=== PATIENT | female | born 1995 | race Caucasian/White ===

== ENCOUNTER 2019-09-25 18:20 | Emergency (ER) | payer BC, SELFPAY ==
--- NOTE | ~2019-09-25 | XR_ITS ---
EXAMINATION: XR hand RT min 3V EXAM DATE: 09/25/2019 19:49 INDICATION: Initial encounter following injury, with pain of the right hand. Dog bite. TECHNIQUE: Right hand frontal, lateral and oblique projections obtained and reviewed. There is no pr ior study for comparison. FINDINGS: Right metacarpal bones are unremarkable. There are no acute fractures or dislocations iden tified. There is no subcutaneous gas. The soft tissue is unremarkable. IMPRESSION: 1. XR hand RT min 3V exam without acute osseous findings. Reviewed, dictated and finalized at location A.
--- NOTE | ~2019-09-25 | XR_ITS ---
EXAMINATION: XR hand LT min 3V EXAM DATE: 09/25/2019 19:49 INDICATION: Initial encounter following injury, with pain of the left hand. Dog bite. TECHNIQUE: Left hand frontal, lateral and oblique projections obtained and reviewed. There is no dwayne or study for comparison. FINDINGS: Left metacarpal bones are unremarkable. There are no acute fractures or dislocations ident ified. There is no subcutaneous gas. The soft tissue is unremarkable. There are no radiopaque for eign bodies. IMPRESSION: No acute osseous findings. Reviewed, dictated and finalized at location A. IMPRESSION: No acute osseous findings.
[2019-09-25 18:24] VITALS: BP 142/91; PULSE 76; RESP 18; TEMP 37.1; O2SAT 100
--- NOTE | 2019-09-25 19:34 | ED.ANIMALBIT ---
HPI - Animal Bite General Chief Complaint: Animal Bite <PANCHITO Courtney Last Filed: 09/25/19 20:02> Stated Complaint: DOG BITE BILATERAL HANDS <PANCHITO Courtney Last Filed: 09/25/19 20:02> Time Seen by Provider: 09/25/19 18:51 <PANCHITO Courtney Last Filed: 09/25/19 20:02> Source: patient <PANCHITO Courtney Last Filed: 09/25/19 20:02> Mode of arrival: ambulatory <PANCHITO Courtney Last Filed: 09/25/19 20:02> Limitations: no limitations <PANCHITO Courtney Last Filed: 09/25/19 20:02> History of Present Illness HPI narrative: This is a 24 year old female that presents to the ER for dog bite just prior to arrival. Reports she was out walking her dog and another dog attacked hers. Reports the other dog is up to date on vaccinations. Reports she is up to date on tetanus. Denies decreased ROM or numbness. <PANCHITO Courtney Last Filed: 09/25/19 20:02> Related Data Home Medications: Home Medications Medication Instructions Recorded Confirmed norgestimate-ethinyl estradiol tablet 09/25/19 [Tri-Sprintec (28)] <PANCHITO Courtney Last Filed: 09/25/19 20:02> Allergies/Adverse Reactions: Allergies Allergy/AdvReac Type Severity Reaction Status Date / Time No Known Allergies Allergy Unverified 09/25/19 18:33 <PANCHITO Courtney Last Filed: 09/25/19 20:02> Review of Systems Review of Systems: Narrative: CONSTITUTIONAL: Denies fever SKIN: Report laceration MUSCULOSKELETAL: Denies joint pain, or myalgia. NEUROLOGIC: Denies numbness <PANCHITO Courtney Last Filed: 09/25/19 20:02> All systems reviewed & are unremarkable except as noted in HPI and below <PANCHITO Courtney Last Filed: 09/25/19 20:02> PMFSH Past Medical History Medical History: Medical History (Updated 09/25/19 @ 20:00 by Rolanda Frazier PA-C) No active medical problems <Rolanda Frazier PA-C - Last Filed: 09/25/19 20:02> Family History Family History: Family History (Updated 05/30/16 @ 13:03 by DOCTOR UNKNOWN) Mother Family history of diabetes mellitus in first degree relative Family history of type 1 diabetes mellitus Grandparent Family history of cardiovascular disease Carcinoma of colon Family history of malignant neoplasm of brain <Rolanda Frazier PA-C - Last Filed: 09/25/19 20:02> Social History Social History: Social History Smoking status: Never smoker Alcohol intake: current Gender identity (if verbalized by the patient): Female <Rolanda Frazier PA-C - Last Filed: 09/25/19 20:02> Exam Narrative: Exam Narrative: GENERAL: Well-appearing, well-nourished, and in no acute distress. HEAD: Normocephalic, atraumatic. EYES: EOMI. EXTREMITIES: Normal range of motion. No edema or obvious deformity. Superficial abrasions at the base of bilateral 5th fingers SKIN: Warm, dry, no rash. NEURO: No focal deficits. Alert and oriented x3. PSYCH: Normal mood and affect <Rolanda Frazier PA-C - Last Filed: 09/25/19 20:02> Course Vital Signs Vital signs: Vital Signs Temperature 37.1 C 09/25/19 18:24 Pulse Rate 76 09/25/19 18:24 Respiratory Rate 18 09/25/19 18:24 Blood Pressure 142/91 H 09/25/19 18:24 Pulse Oximetry 100 09/25/19 18:24 Temperature 37.1 C 09/25/19 18:24 Pulse Rate 76 09/25/19 18:24 Respiratory Rate 18 09/25/19 18:24 Blood Pressure 142/91 H 09/25/19 18:24 Pulse Oximetry 100 09/25/19 18:24 <Rolanda Frazier PA-C - Last Filed: 09/25/19 20:02> Vital Signs Temperature 37.1 C 09/25/19 18:24 Pulse Rate 76 09/25/19 18:24 Respiratory Rate 18 09/25/19 18:24 Blood Pressure 142/91 H 09/25/19 18:24 Pulse Oximetry 100 09/25/19 18:24 Temperature 37.1 C 09/25/19 18:24 Pulse Rate 76 09/25/19 18:24 Respiratory Rate 18 09/25/19 18:24 Blood Pressure 142/91 H 09/25/19 18:24 Pulse Oximetry 100 09/25/19 18:
== END 2019-09-25 20:30 | disposition home or self-care (01) ==
PROVIDERS: Emergency Provider Emergency Medicine; PCP Family Medicine
DX: S61.452A Open bite of left hand, initial encounter (principal); S61.451A Open bite of right hand, initial encounter; W54.0XXA Bitten by dog, initial encounter
CPT/HCPCS: 73130; 99284

== ENCOUNTER 2020-08-29 08:29 | Emergency (ER) | payer OTHER, SELFPAY ==
[2020-08-29 08:31] VITALS: BP 125/84; PULSE 77; RESP 20; TEMP 36.8; O2SAT 100
--- NOTE | 2020-08-29 09:39 | ED.WOUNDLAC ---
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 right forearm Cat has apparently not one of their frequent customers but is known and can be observed either in their office or at the director payer's office, is not known whether all vaccinations are current but they have at least been given previously Right now she has no swelling no redness no problems moving her arm or wrist and no bleeding from the wounds Related Data Home Medications Medication Instructions Recorded Confirmed norgestimate-ethinyl estradiol 1 tablet PO DAILY 09/25/19 08/29/20 [Tri-Sprintec (28)] Allergies Allergy/AdvReac Type Severity Reaction Status Date / Time No Known Allergies Allergy Verified 08/29/20 08:32 Review of Systems Review of Systems: All systems reviewed & are unremarkable except as noted in HPI and below Constitutional: Constitutional: Reports no additional constitutional complaints, Denies chills, Denies fever(s) and Denies headache(s) ENT: Denies headache(s) Cardiovascular: Cardiovascular: Denies dyspnea Genitourinary: Genitourinary: Denies urinary frequency Musculoskeletal: Musculoskeletal: Denies deformity, Denies arthralgias, Denies joint swelling and Denies numbness Integumentary/Breasts: Skin/Breast: Denies erythema, Denies rash and Denies wounds Neurologic: Denies focal weakness and Denies numbness Psychiatric: Psychiatric: Reports no additional psychiatric complaints [facility] Past Medical History Medical History (Updated 08/29/20 @ 09:49 by Naeem Patterson MD) No active medical problems Family History Family History (Updated 05/30/16 @ 13:03 by DOCTOR UNKNOWN) Mother Family history of diabetes mellitus in first degree relative Family history of type 1 diabetes mellitus Grandparent Family history of cardiovascular disease Carcinoma of colon Family history of malignant neoplasm of brain Social History Social History Smoking status: Never smoker Alcohol intake: current Gender identity (if verbalized by the patient): Female Exam Const: General: cooperative, no acute distress and alert Orientation/consciousness: patient oriented x3 (alert) HENMT: Head: normal to inspection, normocephalic and atraumatic Eyes: Conjunctivae: conjunctivae normal EOM: EOMs intact bilaterally Neck: Neck: supple and no JVD Resp: Effort & Inspection: normal respiratory effort and not labored Auscultation: other (BS =) Skin: General skin exam: normal color and no rashes or lesions noted Neuro: General: patient oriented x3 (alert) and moves all extremities Speech: normal speech Extrem: Other: There are 4 separate small punctures to the mid forearm, medially seems very superficial, laterally 1 seems likely to have entered subcu Distal neurovascular is all normal Psych: Affect: normal affect Course Vital Signs Vital signs: Vital Signs Temperature 36.8 C 08/29/20 08:31 Pulse Rate 77 08/29/20 08:31 Respiratory Rate 20 08/29/20 08:31 Blood Pressure 125/84 08/29/20 08:31 Pulse Oximetry 100 08/29/20 08:31 Temperature 36.8 C 08/29/20 08:31 Pulse Rate 77 08/29/20 08:31 Respiratory Rate 20 08/29/20 08:31 Blood Pressure 125/84 08/29/20 08:31 Pulse Oximetry 100 08/29/20 08:31 Discharge Plan Discharge Clinical Impression: Cat bite involving extremity Patient Disposition: Home, Self-Care Condition: Stable Instructions: Antibiotic Form, Animal Bite (ED) Prescriptions: New amoxicillin-pot clavulanate [Augmentin] 250-62.5 mg/5 mL suspension for reconstitution 15 ml PO
[2020-08-29] MEDS: TETANUS,DIPHTHERIA,AC PERTUSSIS ADULT (0.5 ML) BOOSTRIX IM (09:49)
[2020-08-29 09:58] VITALS: BP 132/68; PULSE 80; RESP 18; O2SAT 99
== END 2020-08-29 10:00 | disposition home or self-care (01) ==
PROVIDERS: Emergency Provider Emergency Medicine; PCP Family Medicine
DX: S51.851A Open bite of right forearm, initial encounter (principal); W55.01XA Bitten by cat, initial encounter; Z23 Encounter for immunization
CPT/HCPCS: 90471; 90715; 99283

== ENCOUNTER 2021-01-07 08:57 | Outpatient (CLI) | payer OTHER, SELFPAY ==
[2021-01-07 18:30] LABS: Hematocrit 41.2 % (37.0-47.0); Mean Corpuscular HGB Conc 31.6 g/dl (32-36); Mean Corpuscular Hemoglobin 28.3 pg (26-34); Mean Corpuscular Volume 89.8 fl (80-100); Platelet Count Result 306 k/mm3 (150-375); Red Blood Count 4.59 M/mm3 (4.2-5.4); Red Cell Distribution Width 12.6 % (11.5-14.5); White Blood Count 7.4 K/mm3 (4.5-10.0)
[2021-01-07 19:49] LABS: Alanine Aminotransferase 315 U/L (4-35); Albumin Level 3.8 g/dL (3.5-5.1); Alkaline Phosphatase 263 U/L (38-126); Anion Gap 8 mmol/L (8-16); Aspartate Amino Transferase 151 U/L (14-36); Bilirubin,Total 0.8 mg/dL (0.2-1.3); Blood Urea Nitrogen 8 mg/dL (7-17); Calcium 9.4 mg/dL (8.4-10.2); Carbon Dioxide 27 mmol/L (22-30); Chloride 102 mmol/L (98-107); Cholesterol 198 mg/dL (0-200); Estimated Glomerular Filt Rate > 60; Glucose 104 mg/dL (65-110); HDL Direct 48 mg/dL; Potassium 4.1 mmol/L (3.4-5.0); Sodium 137 mmol/L (137-145); Triglycerides 124 mg/dL (<150)
[2021-01-07 20:00] LABS: LDL Cholesterol Direct 107 mg/dL
== END 2021-01-07 08:58 | disposition home or self-care (01) ==
LOC: ANHBWCLAB 08:58
PROVIDERS: PCP Family Medicine; Visit Provider Family Medicine
DX: J02.9 Acute pharyngitis, unspecified (principal); J30.9 Allergic rhinitis, unspecified
CPT/HCPCS: 36415; 80053; 80061; 85027

== ENCOUNTER 2021-01-13 07:49 | Outpatient (CLI) | payer OTHER, SELFPAY ==
[2021-01-13 18:52] LABS: Monoscreen Positive (Negative); Negative Monotest Control Negative (Negative); Positive Monotest Control Positive (Positive)
[2021-01-13 19:13] LABS: Alanine Aminotransferase 116 U/L (4-35); Albumin Level 3.8 g/dL (3.5-5.1); Alkaline Phosphatase 181 U/L (38-126); Aspartate Amino Transferase 54 U/L (14-36); Bilirubin,Total 0.7 mg/dL (0.2-1.3)
[2021-01-13 21:25] LABS: Hepatitis B Surface Antigen Negative (Negative)
[2021-01-13 21:31] LABS: HAV RESULT Negative (Negative); Hepatitis B Core IgM Result Negative (Negative)
[2021-01-13 21:43] LABS: Hepatitis C Virus Antibody Negative (Negative)
[2021-01-16 14:48] LABS: EBV Nuclear Ab Antibody <18.00 U/mL (<18.00); EBV Nuclear Ab Interpretation Current (Acute); EBV Virus Capsid Ag IgM Ab >160.00 U/mL (<36.00)
[2021-01-16 20:39] LABS: GGT 55 U/L (3-40)
== END 2021-01-13 07:50 | disposition home or self-care (01) ==
PROVIDERS: PCP Family Medicine; Visit Provider Family Medicine
DX: R74.8 Abnormal levels of other serum enzymes (principal); J02.9 Acute pharyngitis, unspecified
CPT/HCPCS: 36415; 80074; 80076; 82977; 86308; 86664; 86665

== ENCOUNTER 2021-01-18 13:48 | Outpatient (CLI) | payer OTHER, SELFPAY ==
[2021-01-18 18:32] LABS: Basophils Percent Auto 0.6 % (0.2-1.2); Eosinophils Absolute Auto 0.1 K/mm3 (0-0.3); Eosinophils Percent Auto 1.6 % (0-4.4); Hematocrit 38.9 % (37.0-47.0); Hemoglobin 12.4 g/dL (12.0-15.0); Immature Granulocyte Absolute 0.02 K/mm3 (0.00-0.031); Immature Granulocyte Percent A 0.3 % (0-0.5); Lymphocytes Absolute Auto 2.68 K/mm3 (0.9-3.2); Lymphocytes Percent Auto 38.8 % (18.3-44.2); Mean Corpuscular HGB Conc 31.9 g/dl (32-36); Mean Corpuscular Hemoglobin 28.2 pg (26-34); Mean Corpuscular Volume 88.6 fl (80-100); Mean Platelet Volume 10.4 fl (7.4-10.4); Monocytes Absolute Auto 0.6 K/mm3 (0.1-0.6); Monocytes Percent Auto 8.5 % (2.6-8.5); Neutrophils Absolute Auto 3.5 K/mm3 (1.3-6.7); Neutrophils Percent Auto 50.2 % (45.5-73.1); Platelet Count Result 324 k/mm3 (150-375); Red Blood Count 4.39 M/mm3 (4.2-5.4); Red Cell Distribution Width 12.4 % (11.5-14.5); White Blood Count 6.9 K/mm3 (4.5-10.0)
== END 2021-01-18 13:49 | disposition home or self-care (01) ==
LOC: ANHBWCLAB 13:50
PROVIDERS: PCP Family Medicine; Visit Provider Family Medicine
DX: R10.12 Left upper quadrant pain (principal); B27.90 Infectious mononucleosis, unspecified without complication
CPT/HCPCS: 36415; 85025

== ENCOUNTER 2021-01-18 16:33 | Emergency (ER) | payer OTHER, SELFPAY ==
--- NOTE | ~2021-01-18 | CT_ITS ---
EXAMINATION: CT abdomen pelvis w con DATE: 01/18/2021 23:01 INDICATION: Left upper quadrant abdominal pain. TECHNIQUE: Computed tomography (CT) of the abdomen and pelvis was performed with 100 mL Omnipaque 350 intravenous contrast. Automated exposure control and iterative reconstruction technique were employe d. The dose-length product was 332.48 mGy-cm. COMPARISON: None. FINDINGS: The visualized portions of the lung bases demonstrate minimal atelectasis. No pleural effus ion. The heart size is normal. No pericardial effusion. The liver, gallbladder, spleen, pancreas, adr enal glands, and kidneys are normal. The appendix is normal. Stool distends the rectum. There are no pathologically enlarged lymph nodes. There is no free intraperitoneal fluid. There is a 3.0 cm cyst i n right ovary, likely a follicular cyst. There is a benign bone island in left femoral head. IMPRESSION: 1. Stool distends the rectum. Reviewed, dictated and finalized at location A.
[2021-01-18 17:39] VITALS: BP 138/79; PULSE 62; RESP 14; TEMP 36.8; O2SAT 100
[2021-01-18 18:06] LABS: Basophils Percent Auto 0.6 % (0.2-1.2); Eosinophils Absolute Auto 0.1 K/mm3 (0-0.3); Eosinophils Percent Auto 1.2 % (0-4.4); Hematocrit 38.5 % (37.0-47.0); Hemoglobin 12.6 g/dL (12.0-15.0); Immature Granulocyte Absolute 0.02 K/mm3 (0.00-0.031); Immature Granulocyte Percent A 0.3 % (0-0.5); Lymphocytes Absolute Auto 2.95 K/mm3 (0.9-3.2); Lymphocytes Percent Auto 44.2 % (18.3-44.2); Mean Corpuscular HGB Conc 32.7 g/dl (32-36); Mean Corpuscular Hemoglobin 28.6 pg (26-34); Mean Corpuscular Volume 87.3 fl (80-100); Mean Platelet Volume 9.9 fl (7.4-10.4); Monocytes Absolute Auto 0.5 K/mm3 (0.1-0.6); Neutrophils Absolute Auto 3.1 K/mm3 (1.3-6.7); Neutrophils Percent Auto 46.7 % (45.5-73.1); Platelet Count Result 301 k/mm3 (150-375); Red Blood Count 4.41 M/mm3 (4.2-5.4); Red Cell Distribution Width 12.3 % (11.5-14.5); White Blood Count 6.7 K/mm3 (4.5-10.0)
[2021-01-18 18:11] LABS: Alanine Aminotransferase 59 U/L (4-35); Alkaline Phosphatase 127 U/L (38-126); Anion Gap 5 mmol/L (8-16); Aspartate Amino Transferase 45 U/L (14-36); Bilirubin,Total 0.6 mg/dL (0.2-1.3); Blood Urea Nitrogen 11 mg/dL (7-17); Calcium 8.9 mg/dL (8.4-10.2); Carbon Dioxide 26 mmol/L (22-30); Chloride 105 mmol/L (98-107); Estimated CRCL calculation 98 ml/min; Estimated Glomerular Filt Rate > 60; Glucose 90 mg/dL (65-110); Lipase 88 U/L (23-300); Potassium 4.3 mmol/L (3.4-5.0); Sodium 136 mmol/L (137-145)
[2021-01-18 20:41] VITALS: BP 143/65; PULSE 63; RESP 20; TEMP 36.3; O2SAT 100
[2021-01-18 22:17] LABS: Add Urine Microscopic? YES; Amorphous Sediment Urine Few; Appearance Urine Cloudy (Clear); Bacteria Urine Trace /hpf; Bilirubin Urine Negative (Negative); Blood Urine Negative (Negative); Color Urine Yellow (Yellow); Glucose Urine UA Negative (Negative); Ketones Urine Negative (Negative); Leukocyte Esterase Ur 1+ LEU/UL (Negative); Mucus Urine Rare /lpf; Nitrate Urine Negative (Negative); Protein Urine Negative (Negative); Squamous Epithelial Cell Urine Many /hpf (Few); Urobilinogen Urine Negative mg/dL (<2.0); WBC Urine 0-3 /hpf
[2021-01-18 22:44] VITALS: BP 131/81; PULSE 72; RESP 14; O2SAT 100
--- NOTE | 2021-01-19 00:22 | ED.ABDPAIN ---
HPI - Abdominal Pain General Chief Complaint: Abdominal Pain Stated Complaint: abd pain Time Seen by Provider: 01/18/21 22:12 History of Present Illness HPI narrative: Patient is a 25-year-old female who presents ER with left upper quadrant abdominal pain. She was referred here by her PCP for CT scan of abdomen pelvis. Patient was diagnosed recently with Jany-Sutton virus. She had been doing well despite having fatigue and sore throat. The pain started over the last couple days. 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 No lightheadedness or dizziness. No recent fevers or chills or sweats. No alleviating factors. Radiates to the left flank. Related Data Home Medications Medication Instructions Recorded Confirmed norgestimate-ethinyl estradiol 1 tablet PO DAILY 09/25/19 01/12/21 [Tri-Sprintec (28)] cetirizine 10 mg tablet 10 mg PO DAILY PRN 01/07/21 01/12/21 Allergies Allergy/AdvReac Type Severity Reaction Status Date / Time No Known Allergies Allergy Verified 01/18/21 13:14 Review of Systems Review of Systems: All systems reviewed & are unremarkable except as noted in HPI and below Constitutional: Constitutional: Denies chills, Reports fatigue and Denies fever(s) ENT: Denies nasal congestion and Denies sore throat Gastrointestinal: Gastrointestinal: Reports abdominal pain, Denies constipation, Denies diarrhea, Denies nausea and Denies vomiting Genitourinary: Genitourinary: Denies hematuria, Denies nocturia, Denies dysuria and Reports flank pain Musculoskeletal: Musculoskeletal: Denies back pain and Denies muscle cramps PMFSH Past Medical History Medical History (Updated 01/19/21 @ 00:26 by Yaniv Merida MD) No active medical problems Surgical History Surgical History (Updated 01/19/21 @ 00:24 by Yaniv Merida MD) No pertinent past surgical history Family History Family History Mother Family history of diabetes mellitus in first degree relative Family history of type 1 diabetes mellitus Grandparent Family history of cardiovascular disease Carcinoma of colon Family history of malignant neoplasm of brain Social History Social History Smoking status: Never smoker Alcohol intake: current Gender identity (if verbalized by the patient): Female Exam Narrative: GENERAL: Well-appearing, well-nourished, and in no acute distress. HEAD: Normocephalic, atraumatic. CHEST: Clear to auscultation. No respiratory distress. HEART: Regular rate and rhythm. Normal peripheral pulses. ABDOMEN: Soft, mild tenderness left upper quadrant without rebound or guarding, no palpable hepatosplenomegaly, nondistended. EXTREMITIES: Normal range of motion. No edema. SKIN: Warm, dry, no rash. NEURO: Alert and oriented x3. PSYCH: Normal mood and affect. Course Course Emergency Course: Informed of results. Discharge home. Vital Signs Vital signs: Vital Signs Temperature 98.3 F 01/18/21 17:39 Pulse Rate 62 01/18/21 17:39 Respiratory Rate 14 01/18/21 17:39 Blood Pressure 138/79 01/18/21 17:39 Pulse Oximetry 100 01/18/21 17:39 Temperature 97.4 F L 01/18/21 20:41 Pulse Rate 72 01/18/21 22:44 Respiratory Rate 14 01/18/21 22:44 Blood Pressure 131/81 01/18/21 22:44 Pulse Oximetry 100 01/18/21 22:44 MDM - Abdominal Pain Lab Data Result diagrams: 01/18/21 17:50 01/18/21 17:50 Labs: Lab Results 01/18/21 01/18/21 01/18/21 Range/Units 17:50 17:50 22:03 WBC 6.7 (4.5-10.0) K/mm3 RBC 4.41 (4.2-5.4) M/mm3 Hgb 12.6 (12.0-15.0) g/dL Hct 38.5 (37.0-47.0) % MCV 87.3 (80-100) fl MCH 28.6 (26-34) pg MCHC 32.7 (32-36) g/dl RDW 12.3 (11.5-14.5) % Plt Count 301 (150-375) k/mm3 MPV 9.9 (7.4-10.4) fl Immature Gran % (Auto) 0.3 (0-0.5) % Neut % (A
[2021-01-19 00:33] VITALS: BP 135/82; PULSE 80; RESP 14; O2SAT 99
== END 2021-01-19 00:33 | disposition home or self-care (01) ==
PROVIDERS: Emergency Medicine; Emergency Provider Emergency Medicine; PCP Family Medicine
DX: K59.00 Constipation, unspecified (principal)
CPT/HCPCS: 36415; 74177; 80053; 81001; 81025; 83690; 85025; 99284; Q9967

== ENCOUNTER 2021-05-11 08:59 | Outpatient (CLI) | payer OTHER, SELFPAY ==
--- NOTE | ~2021-05-11 | XR_ITS ---
EXAMINATION: XR abdomen obstructive series DATE: 05/11/2021 09:20 INDICATION: Abdomen pain. TECHNIQUE: Supine and upright views of the abdomen. FINDINGS: Upright view is limited for evaluation of free air due to exclusion of the diaphragms. There is a nonobstructive bowel gas pattern. Gas and stool are seen throughout the colon to the level of the rectum. Moderate colonic fecal loading. No abnormal calcifications. IMPRESSION: 1. No acute abdominal abnormality. Reviewed, dictated and finalized at location A. TY AUDITOR
[2021-05-11 17:51] LABS: Alanine Aminotransferase 23 U/L (4-35); Alkaline Phosphatase 66 U/L (38-126); Aspartate Amino Transferase 30 U/L (14-36); Bilirubin,Total 0.4 mg/dL (0.2-1.3)
[2021-05-11 18:21] LABS: Hepatitis B Surface Antigen Negative (Negative)
[2021-05-11 18:27] LABS: HAV RESULT Negative (Negative); Hepatitis B Core IgM Result Negative (Negative)
[2021-05-11 18:38] LABS: Hepatitis C Virus Antibody Negative (Negative)
== END 2021-05-11 09:00 | disposition home or self-care (01) ==
LOC: ANHBWCLAB 09:01
PROVIDERS: PCP Family Medicine; Visit Provider Family Medicine
DX: R10.9 Unspecified abdominal pain (principal); R35.0 Frequency of micturition; R51.9 Headache, unspecified; R74.8 Abnormal levels of other serum enzymes; S06.0X9A Concussion with loss of consciousness of unspecified duration, initial encounter
CPT/HCPCS: 36415; 74019; 80074; 80076; 84443

== ENCOUNTER 2022-07-16 22:17 | Emergency (ER) | payer OTHER, SELFPAY ==
--- NOTE | ~2022-07-16 | XR_ITS ---
Portable chest x-ray Comparison: 10/29/2013 Clinical History: Weakness, rapid heart rate Findings: Lungs are clear, without focal consolidation or pleural effusion. Cardiomediastinal silho uette is stable. Bones and soft tissues are unremarkable. Impression: Normal chest. Reviewed, dictated and finalized at location . ER CHAINSTITCH Impression: Normal chest.
[2022-07-16 22:25] VITALS: BP 136/89; PULSE 75; RESP 16; TEMP 36.6; O2SAT 100
--- NOTE | 2022-07-16 22:25 | ECG_ITS ---
Measurements Intervals Reedy Rate: 69 P: 32 DC: 154 QRS: 52 QRSD: 89 T: 19 QT: 366 QTc: 392 Interpretive Statements SINUS RHYTHM POSSIBLE LEFT ATRIAL ENLARGEMENT RSR (QR) IN V1/V2 BORDERLINE ECG NO PREVIOUS ECG AVAILABLE FOR COMPARISON Electronically Signed On 07-17-2022 14:11:18 GETTERER by Jaylon Mo M.D.
[2022-07-16 23:46] VITALS: PULSE 60; O2SAT 100
[2022-07-16 23:47] VITALS: BP 128/74; PULSE 63; RESP 14; O2SAT 100
[2022-07-17] VITALS (10 sets, daily range): BP systolic 106–127; BP diastolic 70–82; PULSE 56–72; RESP 16–24; O2SAT 99–100
[2022-07-17] MEDS: METOCLOPRAMIDE HCL INJ 10 MG/2 ML VIAL IV PUSH (00:02)
[2022-07-17] MEDS: SODIUM CHLORIDE 0.9% IV 1,000 ML 999 ML IV CONT (00:02)
[2022-07-17 00:12] LABS: Lactic Acid Reflex 0.6 mmol/L (0.7-2.0)
[2022-07-17 00:14] LABS: Alanine Aminotransferase 22 U/L (6-35); Albumin Level 4.3 g/dL (3.5-5.1); Alkaline Phosphatase 78 U/L (38-126); Anion Gap 4 mmol/L (8-16); Aspartate Amino Transferase 30 U/L (14-36); Basophils Percent Auto 0.4 % (0.2-1.2); Bilirubin,Total 0.4 mg/dL (0.2-1.3); Blood Urea Nitrogen 11 mg/dL (7-17); Calcium 9.2 mg/dL (8.4-10.2); Carbon Dioxide 27 mmol/L (22-30); Chloride 105 mmol/L (98-107); Eosinophils Absolute Auto 0.1 K/mm3 (0-0.3); Eosinophils Percent Auto 1.6 % (0-4.4); Estimated CRCL calculation 111 ml/min; Estimated Glomerular Filt Rate > 60; Glucose 105 mg/dL (65-110); Hemoglobin 13.2 g/dL (12.0-15.0); Immature Granulocyte Absolute 0.07 K/mm3 (0.00-0.031); Immature Granulocyte Percent A 0.9 % (0-0.5); Lymphocytes Absolute Auto 2.75 K/mm3 (0.9-3.2); Lymphocytes Percent Auto 36.6 % (18.3-44.2); Mean Corpuscular Hemoglobin 29.5 pg (26-34); Mean Corpuscular Volume 89.5 fl (80-100); Mean Platelet Volume 10.6 fl (7.4-10.4); Monocytes Absolute Auto 0.4 K/mm3 (0.1-0.6); Monocytes Percent Auto 5.7 % (2.6-8.5); Neutrophils Absolute Auto 4.1 K/mm3 (1.3-6.7); Neutrophils Percent Auto 54.8 % (45.5-73.1); Platelet Count Result 291 k/mm3 (150-375); Potassium 3.8 mmol/L (3.4-5.0); Red Blood Count 4.47 M/mm3 (4.2-5.4); Red Cell Distribution Width 12.8 % (11.5-14.5); Sodium 136 mmol/L (137-145); White Blood Count 7.5 K/mm3 (4.5-10.0)
--- NOTE | 2022-07-17 00:15 | ED.GENADULT ---
HPI - General Adult General Chief complaint: Weakness Stated complaint: dizziness, lightheadedness, rapid HR Time Seen by Provider: 07/16/22 23:05 History of Present Illness HPI narrative: Is a 27-year-old female who presents the emergency department with chief complaint of lightheadedness and fast heart rate. The patient reports that she was playing volleyball today and started feeling lightheaded seeing spots and reported that her Apple Watch read that her heart rate was between 140 and 160. Patient states she felt as though she was having palpitations with a little bit of tightness in her chest as well. Patient reports the symptoms are worsened whenever she sits up and reports that they are improved with laying down. The patient also reports that she had nausea with this as well. Related Data Home Medications Medication Instructions Recorded Confirmed norgestimate-ethinyl estradiol 1 tablet PO DAILY 09/25/19 05/11/21 0.18 mg/0.215mg/0.25mg-35 mcg(28)tablet (Tri-Sprintec (28)) cetirizine 10 mg tablet (Zyrtec) 10 mg PO DAILY PRN 01/07/21 05/11/21 Allergies Allergy/AdvReac Type Severity Reaction Status Date / Time No Known Allergies Allergy Verified 05/11/21 08:24 Review of Systems Review of Systems: A 10 system review of systems was completed on the patient and is negative except for what is stated in the HPI. Nursing and ancillary documentation was reviewed. PMFSH Past Medical History Medical History No active medical problems Surgical History Surgical History No pertinent past surgical history Family History Family History Mother Family history of diabetes mellitus in first degree relative Family history of type 1 diabetes mellitus Grandparent Family history of cardiovascular disease Carcinoma of colon Family history of malignant neoplasm of brain Social History Social History Smoking status: Never smoker Alcohol intake: current Gender identity (if verbalized by the patient): Female Exam Narrative: GENERAL: Well-appearing, well-nourished, and in no acute distress. HEAD: Normocephalic, atraumatic. EYES: PERRLA and EOMI. ENT: Nares clear, no rhinorrhea or epistaxis. Mucous membranes moist. NECK: Supple. CHEST: Clear to auscultation. No respiratory distress. HEART: Regular rate and rhythm. No murmur heard. Normal peripheral pulses. ABDOMEN: Soft, nontender, nondistended, normal active bowel sounds. EXTREMITIES: Normal range of motion. No edema. SKIN: Warm, dry, no rash. NEURO: No focal deficits. Alert and oriented x3. PSYCH: Normal mood and affect. Course Vital Signs Vital signs: Vital Signs Temperature 36.6 C 07/16/22 22:25 Pulse Rate 75 07/16/22 22:25 Respiratory Rate 16 07/16/22 22:25 Blood Pressure 136/89 07/16/22 22:25 Pulse Oximetry 100 07/16/22 22:25 Oxygen Delivery Room Air 07/16/22 22:25 Temperature 36.6 C 07/16/22 22:25 Pulse Rate 70 07/17/22 01:20 Respiratory Rate 16 07/16/22 22:25 Blood Pressure 123/82 07/17/22 01:20 Pulse Oximetry 100 07/16/22 22:25 Oxygen Delivery Room Air 07/16/22 22:25 Medical Decision Making [facility] Narrative Medical decision making narrative: Differential diagnosis includes dysrhythmia, electrolyte abnormality, dehydration. EKG interpreted by me shows sinus rhythm rate of [address] elevation or ST depression Chest x-ray interpreted by me shows no focal findings Laboratory studies were obtained which showed normal electrolytes normal CBC lactic acid was 0.6 urine was clean COVID and flu were negative. Patient was observed in the emergency department on telemetry received IV fluids and is feeling much better she has negative orthostatics was able
[2022-07-17 00:25] LABS: Troponin I < 0.012 ng/mL (0.000-0.034)
[2022-07-17 00:30] LABS: Appearance Urine Clear (Clear); Bilirubin Urine Negative (Negative); Blood Urine Trace-lysed (Negative); Color Urine Yellow (Yellow); Glucose Urine UA Negative (Negative); Ketones Urine Negative (Negative); Leukocyte Esterase Ur Negative LEU/UL (Negative); Nitrate Urine Negative (Negative); Protein Urine Negative (Negative); Urobilinogen Urine 0.2 mg/dL (<2.0)
[2022-07-17 00:34] LABS: Mucus Urine Rare /lpf; RBC Urine 0-2 /hpf (0-2); Squamous Epithelial Cell Urine Rare /hpf (Few); WBC Urine 0-3 /hpf
[2022-07-17 00:37] LABS: Add Urine Microscopic? NO
[2022-07-17 00:50] LABS: Influenza A QL RT-PCR Negative (Negative); Influenza B QL RT-PCR Negative (Negative); SARS-CoV-2 RNA PCR Negative
== END 2022-07-17 01:49 | disposition home or self-care (01) ==
PROVIDERS: Emergency Provider Emergency Medicine; PCP Family Medicine
DX: R00.2 Palpitations (principal); R55 Syncope and collapse; Z20.822 Contact with and (suspected) exposure to COVID-19; R94.31 Abnormal electrocardiogram [ECG] [EKG]
CPT/HCPCS: 36415; 71045; 80053; 81003; 81025; 83605; 83735; 84484; 85025; 87636; 93005; 96361; 96374; 99284; J2765; J7030

== ENCOUNTER 2022-07-20 10:36 | Outpatient (CLI) | payer BC, SELFPAY ==
[2022-07-20 19:38] LABS: CRP < 0.5 mg/dL (<1.0)
[2022-07-20 20:00] LABS: Ferritin 9.84 ng/mL (6.24-137)
[2022-07-20 20:45] LABS: Erythrocyte Sedimentation Rate 13 mm/hr (0-20)
== END 2022-07-20 10:37 | disposition home or self-care (01) ==
LOC: ANHBWCLAB 10:37
PROVIDERS: PCP Family Medicine; Visit Provider Family Medicine
DX: R07.89 Other chest pain (principal); R42 Dizziness and giddiness; R51.9 Headache, unspecified; S06.0X9A Concussion with loss of consciousness of unspecified duration, initial encounter
CPT/HCPCS: 36415; 82728; 85652; 86140

== ENCOUNTER 2022-07-20 12:39 | Outpatient (CLI) | payer BC, SELFPAY ==
--- NOTE | ~2022-07-20 | MR_ITS ---
EXAMINATION: MR brain/brain stem wo con DATE: 07/20/2022 13:40 INDICATION: Headache. Presyncope. Dizziness. TECHNIQUE: Magnetic resonance imaging (MRI) of the brain and brainstem was performed without intraven ous contrast. COMPARISON: None. FINDINGS: There is no acute infarct, intracranial hemorrhage, or abnormal mass lesion. The ventricles are normal in size. The orbits and mastoid air cells are normal. There is mild mucosal thickening in the ethmoid sinuses. IMPRESSION: 1. Normal brain. Reviewed, dictated and finalized at location A. OUT NANNY IMPRESSION: 1. Normal brain.
== END 2022-07-20 12:40 | disposition home or self-care (01) ==
PROVIDERS: PCP Family Medicine; Visit Provider Family Medicine
DX: R42 Dizziness and giddiness (principal); R51.9 Headache, unspecified; S06.0X9A Concussion with loss of consciousness of unspecified duration, initial encounter; T14.90XA Injury, unspecified, initial encounter
CPT/HCPCS: 70551

== ENCOUNTER 2022-08-31 12:27 | Outpatient (CLI) | payer BC, SELFPAY ==
--- NOTE | 2022-08-31 12:41 | ECHO_ITS ---
Patient Info Name: Brittany Cruz Age: 27 years : 1995 Gender: Female Ht: 66 in Wt: 165 lbs BSA: 1.88 m2 HR: 64 bpm BP: 133 / 89 mmHg Technical Quality: Good Exam Date: 08/31/2022 12:48 PM Exam Location: [facility] Patient Status: Outpatient Admit Date: 08/31/2022 Staff Ordering Physician: Sedrick Kwon DO Welding Setter: Lois Bains RDCS Attending Provider: Sedrick Kwon DO Referring Physician: Doyle OCONNELL; Exam Type: CA echo doppler color flow Study Info Indications R06.09 - Other forms of dyspnea Complete two-dimensional, color flow and Doppler transthoracic echocardiogram is performed. Summary 1. Complete two-dimensional, color flow and Doppler transthoracic echocardiogram is performed. 2. Left ventricular chamber dimension is normal. 3. Left ventricular systolic function is normal, estimated at 65-70%. 4. The left ventricular diastolic function is normal. 5. E/e' 6 is not elevated. 6. Global longitudinal strain is normal at -21.6%. 7. Left atrial chamber dimension is mildly enlarged. 8. There is trace tricuspid valve regurgitation. 9. No pulmonary hypertension, estimated pulmonary arterial systolic pressure is 24 mmHg. Left Ventricle E/e' 6 is not elevated. Global longitudinal strain is normal at -21.6%. Left ventricular chamber dimension is normal. Left ventricular systolic function is normal, estimated at 65-70%. The left ventricular diastolic function is normal. Right Ventricle Right ventricular systolic function is normal and with normal TAPSE 2.9 cm. Right ventricular chamber dimension is normal. Left Atria Left atrial chamber dimension is mildly enlarged. Right Atria Right atrial chamber dimension is normal. Aortic Valve The aortic valve is trileaflet. There is no aortic valve stenosis. There is no aortic valve regurgitation. Pulmonic Valve There is no pulmonic regurgitation. Mitral Valve There is no mitral valve stenosis. There is no mitral valve regurgitation. Tricuspid Valve There is trace tricuspid valve regurgitation. No pulmonary hypertension, estimated pulmonary arterial systolic pressure is 24 mmHg. Pericardium/Pleural There is no pericardial effusion. Inferior Vena Cava Normal inferior vena cava with >50% collapse upon inspiration consistent with normal right atrial pressure, 5 mmHg. Aorta The aortic root size at the sinus of Valsalva is normal. Left Ventricular Outflow Tract Name Value Normal LVOT 2D LVOT Diameter 2.0 cm LVOT Doppler LVOT Peak Gradient 8 mmHg LVOT Mean Gradient 5 mmHg LVOT VTI 32 cm LVOT VTI/AV VTI Ratio 1.0 LVOT Stroke Volume 96 ml LVOT CO 6.2 l/min LVOT CI 3.3 l/min/m2 Mitral Valve Name Value Normal JUAN MANUEL Santanapl
== END 2022-08-31 12:28 | disposition home or self-care (01) ==
LOC: ANHCARD 12:27
PROVIDERS: PCP Family Medicine; Visit Provider Internal Medicine Cardiovascular Disease
DX: R06.09 Other forms of dyspnea (principal); R93.1 Abnormal findings on diagnostic imaging of heart and coronary circulation
CPT/HCPCS: 93306

== ENCOUNTER 2022-11-03 11:15 | Outpatient (RCR) | payer BC, SELFPAY ==
--- NOTE | 2022-09-25 14:41 | PTOPEVAL1 ---
Assessment and note entered by Florentino Arteaga, PT Evaluation Information Assessment Status Evaluation Diagnosis Dizziness and giddiness Onset over 2 months ago. Subjective Information Patient reports that she was playing volleyball and started feeling light headed and dizzy. Went to the ER and has also since seen her PCP, along with chimney mechanic, ENT, and has a hearing test scheduled. She has had inconsistently consistent dizziness since then along with some nausea. She reports the biggest trigger with getting up out of bed. Father has Meniere's. Works as a licensed veterinary technician. Reported Pain Level Pain Score 0: Self Report Assessment PT Clinical Summary Brittany is a 27 year old female coming into the clinic with a diagnosis of dizziness and giddiness . She has been feeling this way for around 2 months. She has increased dizziness with VOR, horizontal head turns with walking, and supine to sit. No nystagmus noted during the evaluation. The patient has a hearing test scheduled for tomorrow and recommended to do a vision test also. Patient given habituation exercises to start with and will arrange a ride so we can try the Carmen Maneuver on her. Patient also instructed to keep a journal for all of her dizziness episodes to try to fine more consistent trends. Plan of Care Interventions Gait Training,Hot Pack/Cold Pack,Manual Therapy, Neuro Re-education,Patient/Caregiver Education, Therapeutic Activities,Therapeutic Exercise Other Interventions taping, cupping, IASTM PT Services Indicated Yes Treatment Frequency and 2x/wk for 4 weeks Duration These treatments will address the objective and functional deficits as defined above. The patient will be advanced safely and appropriately in order for the patient to progress towards his/her prior level of function. Additional exercises will be introduced and as well as a comprehensive home exercise program upon discharge, if needed, ?to ensure carryover of functional gains achieved in the clinic. This treatment plan has been reviewed and agreement upon by the patient.
--- NOTE | 2022-10-17 09:25 | PCPTNOTE ---
Patient called & cancelled scheduled appointment this date due to not feeling well.
--- NOTE | 2022-11-03 12:00 | PTOPDC ---
Assessment and note entered by Florentino Arteaga, PT Evaluation Information Assessment Status Discharge Diagnosis Dizziness and Giddiness Onset over 2 months ago. Subjective Information The patient reports she is doing better able to actually function at work and home, but still having dizziness and light headed issues. Patient admits she has not been doing her exercises consistently and has not been in for her hearing or eye appointments. Reported Pain Level Pain Score 0: Self Report Assessment PT Clinical Summary Brittany is a 27 year old female coming into the clinic with a diagnosis of dizziness and giddiness . She was evaluated on 09/25/22 and attended 7 visits. At this time physical therapy recommend consistently doing her HEP along having her eye and hearing appointments to rule out other potential causes of her dizziness. Appears to be more hypoactive oculomotor than BPPV. Discharge from physical therapy at this time with HEP. Plan of Care PT Services Indicated No
== END 2022-11-03 15:31 | disposition home or self-care (01) ==
LOC: ANHPT 11:15
PROVIDERS: PCP Family Medicine; Visit Provider Otolaryngology
DX: R42 Dizziness and giddiness (principal)
CPT/HCPCS: 97110; 97140; 97161; 97530